=== PATIENT | female | born 1980 | race Caucasian/White ===

== ENCOUNTER 2017-12-31 14:24 | Emergency (ER) | payer OTHER ==
[~2017-12-31] VITALS: Ht 167.6 cm; Wt 46.3 kg
[2017-12-31] MEDS ORDERED: MULTIVITAMINS1 EAC7 PO (14:40)
[2017-12-31 14:53] LABS: ABSOLUTE BASOPHILS 0.1 thou/uL (0.0-0.2); ABSOLUTE LYMPHOCYTES 1.9 thou/uL (0.8-5.3); ABSOLUTE MONOCYTES 0.6 thou/uL (0.0-1.2); ABSOLUTE NEUTROPHILS 9.3 thou/uL (1.6-8.1); BASOPHILS 0.6 %; HEMATOCRIT 41.9 % (37.0-47.0); HEMOGLOBIN 13.7 gm/dL (12.0-15.0); LYMPHOCYTES 16.3 %; MCH 27.2 pg (26.0-34.0); MCHC 32.6 g/dL (28.0-37.0); MCV 83.3 fL (80.0-100.0); MONOCYTES 4.9 %; MPV 8.8 fl. (7.2-11.1); NUCLEATED RBCS 0 /100WBC; PLATELET COUNT* 322 thou/uL (150-400); POLYS 78.2 %; RBC 5.02 mil/uL (4.20-5.00); RDW-CV 16.3 % (10.5-14.5); WBC 11.9 thou/uL (4.0-11.0)
[2017-12-31 15:16] LABS: CALCIUM 8.6 mg/dL (8.5-10.1); CREATININE 0.7 mg/dL (0.6-1.3); POTASSIUM 3.3 mmol/L (3.5-5.1)
[2017-12-31 15:20] LABS: ALBUMIN 4.1 g/dL (3.4-5.0); TOTAL BILIRUBIN 0.5 mg/dL (<0.1-1.0); TOTAL PROTEIN 7.6 g/dL (6.4-8.2)
[2017-12-31 15:38] LABS: URINE BILIRUBIN NEGATIVE (Negative); URINE BLOOD NEGATIVE (Negative); URINE CLARITY CLEAR; URINE COLOR YELLOW; URINE GLUCOSE-RANDOM NEGATIVE (Negative); URINE LEUKOCYTES-REFLEX NEGATIVE (Negative); URINE NITRITE-REFLEX NEGATIVE (Negative); URINE PROTEIN 2+ (Negative); URINE UROBILINOGEN 0.2 E.U./dl (0.2-1.0)
[2017-12-31 15:41] LABS: URINE KETONES 3+ (Negative); URINE REDUCING SUBSTANCE NEGATIVE (Negative)
[2017-12-31] MEDS ORDERED: ZOFRAN ODT4 MG PO (15:46)
[2017-12-31 15:47] LABS: BACTERIA-REFLEX None Seen /HPF (None Seen); CRYSTALS None Seen /LPF (None Seen); HYALINE CASTS 0-3 Few /LPF (None Seen); MUCUS 4-6 Moderate strn/LPF (None Seen); SQUAMOUS 4-10 Moderate /LPF (0-3); URINE RBC None Seen /HPF (0-2); URINE WBC-REFLEX 0-5 Rare /HPF (0-5)
[2017-12-31 16:02] VITALS: BP 122/62
== END 2017-12-31 16:03 | disposition home or self-care (01) ==
LOC: M.ERS 14:24
PROVIDERS: Nurse Practitioner Family
DX: K29.70 Gastritis, unspecified, without bleeding (principal); E87.6 Hypokalemia; F17.210 Nicotine dependence, cigarettes, uncomplicated